=== PATIENT | female | born 1985 | race Caucasian/White ===

== ENCOUNTER → 2016-12-01 | Outpatient (CLI) | payer OTHER | END | disposition home or self-care (01) | LOC: LABWHC1 15:54 | PROVIDERS: ATTEND Obstetrics & Gynecology | DX: Z34.90 Encounter for supervision of normal pregnancy, unspecified, unspecified trimester (principal); Z3A.00 Weeks of gestation of pregnancy not specified | CPT/HCPCS: 36415; 84702 ==

== ENCOUNTER 2020-10-26 23:33 | Emergency (ER) | payer OTHER ==
[2020-10-26 23:38] VITALS: BP 111/59; PULSE 88; RESP 18; TEMP 98.1
[2020-10-26] MEDS ORDERED: Acetaminophen-Codeine 300-30mg TAB PO STA (23:57)
[2020-10-26] MEDS ORDERED: ACET/COD 300 MG/30 MG STARTER PACK 6 TAB BTL PO STA (23:57)
--- NOTE | 2020-10-26 23:58 | ED ---
Fall HPI - General Chief Complaint: Fall Stated Complaint: Fall Time Seen by Provider: 10/26/20 23:36 Source: EMS, RN notes reviewed, old records reviewed Mode of arrival: EMS - History of Present Illness Initial Comments: This is a 35-year-old female DF for evaluation patient has severe right-sided back right hip pain. Patient had trip and fall downstairs fall on a shoe that was on the stairs. Patient states she went all the way down the stairs and she felt like she may pass out. Patient denies any other injury was no loss of consciousness did not hit her head. Patient denying any abdominal pain no chest pain or shortness of breath. MD Complaint: fall -: hour(s) Fall From: standing When Fall Occurred: 1 hour [employer] Fall Witnessed: no Place Fall Occurred: home Loss of Consciousness: none Prolonged Down Time?: no Symptoms Prior to Fall: none Location: buttocks Location - Extremities: Right: Thigh Severity: severe Severity scale (1-10): 9 Quality: burning Context: tripped/slipped Associated Symptoms: denies - Related Data Home Medications Medication Instructions Recorded Confirmed Albuterol Inhaler (Mhu) [Ventolin 1 - 2 puff INHALATION Q6HR PRN 03/16/16 07/14/16 Hfa Inhaler] Pnv,Calcium 72/Iron/Folic Acid 1 each PO DAILY 03/16/16 07/14/16 [ Plus Tablet] Previous Rx's Medication Instructions Recorded Acetaminophen-Codeine 300-30mg 1 - 2 tab PO Q4H PRN #30 tablet 07/20/16 [Tylenol #3] Ibuprofen [Motrin] 600 mg PO Q6HR PRN #40 tab 07/20/16 Allergies Allergy/AdvReac Type Severity Reaction Status Date / Time environmental Allergy Unknown Uncoded 10/26/20 23:39 Review of Systems ROS Statement: Those systems with pertinent positive or pertinent negative responses have been documented in the HPI. ROS Other: All systems not noted in ROS Statement are negative. Past Medical History Past Medical History: Asthma History of Any Multi-Drug Resistant Organisms: None Reported Past Surgical History: Section Additional Past Surgical History / Comment(s): breast implants, sinus surgery X2, Section X3. Past Anesthesia/Blood Transfusion Reactions: Postoperative Nausea & Vomiting (PONV) Past Psychological History: No Psychological Hx Reported Smoking Status: Never smoker Past Alcohol Use History: Occasional Past Drug Use History: None Reported - Past Family History Mother Family Medical History: Unable to Obtain Additional Family Medical History / Comment(s): Pt was adopted, unknown family history. General Exam Limitations: no limitations General appearance: alert, in no apparent distress Head exam: Present: atraumatic, normocephalic, normal inspection Eye exam: Present: normal appearance, PERRL, EOMI. Absent: scleral icterus, conjunctival injection, periorbital swelling ENT exam: Present: normal exam, mucous membranes moist Neck exam: Present: normal inspection. Absent: tenderness, meningismus, lymphadenopathy Respiratory exam: Present: normal lung sounds bilaterally. Absent: respiratory distress, wheezes, rales, rhonchi, stridor Cardiovascular Exam: Present: regular rate, normal rhythm, normal heart sounds. Absent: systolic murmur, diastolic murmur, rubs, gallop, clicks GI/Abdominal exam: Present: soft, normal bowel sounds. Absent: distended, tenderness, guarding, rebound, rigid Extremities exam: Present: normal inspection, full ROM, normal capillary refill. Absent: tenderness, pedal edema, joint swelling, calf tenderness Back exam: Present: normal inspection Neurological exam: Present: alert, oriented X3, CN II-XII intact Psychiatric exam: Present: normal affect, normal mood Skin exam: Present: warm, dry, intact, normal color. Absent: rash Course Vital Signs 10/26/20 23:35 Temperature 98.1 F Pulse Rate 88 Respiratory 18 Rate Blood Pressure 111/59 O2 Sat by Pulse 100 Oximetry - Reevaluation(s) Reevaluation #1: 10/27/20 02:35 Medical record is reviewed Reevaluation #2: 10/27/20 02:36 Patient is pain is improved here in the ER and is able to ambulate without severe difficulty or distress Medical Decision Making - Medical Decision Making 35 female to the ER status post a trip and fall. Patient fell with significant back contusion. X-rays otherwise negative urine is negative for blood patient not and can be discharged home - Lab Data Lab Results 10/27/20 10/27/20 Range/Units 00:43 00:43 Urine Color Yellow Urine Appearance Clear (Clear) Urine pH 7.5 (5.0-8.0) Ur Specific [place] 1.026 (1.001-1.035) Urine Protein Trace H (Negative) Urine Glucose (UA) Negative (Negative) Urine Ketones Negative (Negative) Urine Blood Negative (Negative) Urine Nitrite Negative (Negative) Urine Bilirubin Negative (Negative) Urine Urobilinogen <2.0 (<2.0) mg/dL Ur Leukocyte Esterase Negative (Negative) Urine HCG, Qual Not Detected (Not Detectd) - Radiology Data Radiology results: report reviewed (X-ray hip pelvis and lumbosacral spine are negative for traumatic injury), image reviewed Disposition Clinical Impression: Fall, Back contusion Disposition: HOME SELF-CARE Condition: Good Instructions (If sedation given, give patient instructions): Contusion in Adults (ED) Is patient prescribed a controlled substance at d/c from ED?: No Referrals: None,Stated [Primary Care Provider] - 1-2 days
[2020-10-27 01:40] LABS: Appearance,Urine Clear (Clear); Bilirubin,Urine Negative (Negative); Blood,Urine Negative (Negative); Color,Urine Yellow; Glucose,Urine (UA) Negative (Negative); Ketones,Urine Negative (Negative); Leukocyte Esterase,Urine Negative (Negative); Nitrite,Urine Negative (Negative); PH, Urine 7.5 (5.0-8.0); Protein,Urine Trace (Negative); Specific Gravity,Urine 1.026 (1.001-1.035); Urobilinogen,Urine <2.0 mg/dL (<2.0)
--- NOTE | 2020-10-27 02:50 | XR ---
EXAM: XR Lumbosacral Spine, 2 or 3 Views CLINICAL HISTORY: ITS.REASON XR Reason: fall TECHNIQUE: Frontal and lateral views of the lumbar spine and sacrum. COMPARISON: No relevant prior studies available. FINDINGS: Vertebrae: Unremarkable. No acute fracture. Normal alignment. Sacrum/coccyx: Unremarkable as visualized. No acute fracture. Disc spaces: No acute findings. No significant narrowing. Soft tissues: Unremarkable. IMPRESSION: No evidence of acute fracture or malalignment.
--- NOTE | 2020-10-27 02:52 | XR ---
EXAM: XR Right Hip With Pelvis When Performed, 2 or 3 Views CLINICAL HISTORY: ITS.REASON XR Reason: fall TECHNIQUE: Two or three views of the right hip with pelvis when performed. COMPARISON: No relevant prior studies available. FINDINGS: Bones/joints: Unremarkable. No acute fracture. No dislocation. Soft tissues: Unremarkable. IMPRESSION: No evidence of acute fracture or dislocation.
== END 2020-10-27 03:03 | disposition home or self-care (01) ==
LOC: EC 23:33
DX: S30.0XXA Contusion of lower back and pelvis, initial encounter (principal); J45.909 Unspecified asthma, uncomplicated; W10.9XXA Fall (on) (from) unspecified stairs and steps, initial encounter
CPT/HCPCS: 72100; 73502; 81003; 81025; 99284

== ENCOUNTER → 2020-11-15 | Outpatient (CLI) | payer OTHER | END | disposition home or self-care (01) | LOC: LABWHC1 17:15 | PROVIDERS: ATTEND Family Medicine | DX: Z20.822 Contact with and (suspected) exposure to COVID-19 (principal) | CPT/HCPCS: U0003; C9803 ==

== ENCOUNTER 2022-06-26 08:39 | Day surgery (SDC) | payer OTHER ==
[2022-06-23 15:47] VITALS: BMI 26.7
[~2022-06-26 08:39] MED LIST: LACTATED RINGERS 1,000 ML IV SCH; LIDOCAINE 1% (10MG/ML) FOR IV START INTRADERMA PRN
[2022-06-26 09:14] VITALS: TEMP 97.3
[2022-06-26] MEDS ORDERED: PROPOFOL 10 MG/ML 20 ML VIAL IV ONE (10:08)
--- NOTE | 2022-06-26 10:39 | P.PCN ---
Date of Procedure: 06/26/22 Procedure(s) Performed: BRIEF HISTORY: Patient is a 36-year-old pleasant female scheduled for an elective colonoscopy as a part of evaluation of change in bowel habits and intermittent rectal bleeding for the last several years duration. PROCEDURE PERFORMED: Colonoscopy. PREOPERATIVE DIAGNOSIS: Change in bowel habits and intermittent rectal bleeding. IV sedation per Anesthesia. PROCEDURE: After informed consent was obtained, the patient, was brought into the endoscopy unit. IV sedation was administered by Anesthesia under continuous monitoring. Digital rectal examination was normal. Initially the Olympus CF-160 flexible video colonoscope was then inserted in the rectum, gradually advanced into the cecum without any difficulty. Careful examination was performed as the scope was gradually being withdrawn. Ileocecal valve and the appendiceal orifice were visualized and appeared normal. Prep was excellent. Mucosa of the cecum, ascending colon, transverse colon, descending colon, sigmoid colon, and rectum appeared normal. Retroflexion was performed in the rectum and no lesions were seen. The patient tolerated the procedure well. IMPRESSION: Normal-appearing colon from rectum to cecum with no evidence of colorectal neoplasia. RECOMMENDATIONS: Findings of this examination were discussed with the patient as well as her family. She was advised to be a high-fiber diet and take fiber supplements a regular basis. Avoid straining and constipation. Recommend repeat colonoscopy at age 47.
[2022-06-26 10:53] VITALS: RESP 16
[2022-06-26] MEDS ORDERED: ARTIFICIAL TEARS-HYPROMELLOSE DROPS 15 ML BTL BOTH EYES STA (11:02)
[2022-06-26 11:20] VITALS: BP 106/65; PULSE 69
== END 2022-06-26 11:36 | disposition home or self-care (01) ==
LOC: ORWHC2ENDO 08:39
PROVIDERS: ATTEND Internal Medicine Gastroenterology
DX: K62.5 Hemorrhage of anus and rectum (principal); J45.909 Unspecified asthma, uncomplicated
CPT/HCPCS: 81025; 45378; J2704

== ENCOUNTER → 2022-12-08 | Outpatient (CLI) | payer OTHER ==
--- NOTE | 2022-12-08 15:53 | US ---
EXAMINATION TYPE: US pelvic complete DATE OF EXAM: 12/08/2022 COMPARISON: NONE CLINICAL INDICATION: Female, 37 years old with history of R10.2 PELVIC AND PERINEAL PAIN; Pt states b ack and pelvic pain TECHNIQUE: Transabdominal (TA). Transabdominal sonographic images of the pelvis were acquired. Date of LMP: 11/21/2022 EXAM MEASUREMENTS: Uterus: 10.6 x 3.6 x 4.6 cm Endometrial Stripe: 1.3 cm Right Ovary: 3.0 x 2.2 x 2.4 cm Left Ovary: 2.5 x 2.0 x 1.9 cm 1. Uterus: Anteverted wnl 2. Endometrium: wnl 3. Right Ovary: wnl 4. Left Ovary: wnl 5. Bilateral Adnexa: wnl 6. Posterior cul-de-sac: wnl IMPRESSION: Unremarkable study.
== END | disposition home or self-care (01) ==
LOC: RADUSWWP 14:57
PROVIDERS: ATTEND Obstetrics & Gynecology
DX: R10.2 Pelvic and perineal pain (principal)
CPT/HCPCS: 76856

== ENCOUNTER → 2023-06-01 | Outpatient (CLI) | payer OTHER ==
--- NOTE | 2023-06-02 09:48 | MM ---
Reason for Exam: Screening (asymptomatic). Baseline mammogram. Patient History: Menarche at age 14. First Full-Term at age 21. Premenopausal. 06/01/2018, Bilateral Implants. 06/01/2013, Bilateral Implants. Last menstrual period: 05/30/2023 Risk Values: Paula 5 year model risk: 0.2%. NCI Lifetime model risk: 7.5%. Prior Study Comparison: Patient's first Mammogram. Tissue Density: The breast tissue is heterogeneously dense. This may lower the sensitivity of mammography. Findings: Analyzed By CAD. There is no suspicious group of microcalcifications or new suspicious mass in either breast. Bilateral implants are intact. Overall Assessment: Benign, BI-RAD 2 Management: Screening Mammogram of both breasts in 1 year. . Patient should continue monthly self-breast exams. A clinical breast exam by your physician is recommended on an annual basis. This exam should not preclude additional follow-up of suspicious palpable abnormalities. Note on Paula scores and lifetime risk: 1. A Paula score greater than 3% is considered moderate risk. If this is the case, consider specialist referral to assess eligibility for a risk reducing agent. 2. If overall lifetime risk for the development of breast cancer is 20% or higher, the patient may qualify for future screening with alternating mammogram and breast MRI. Electronically signed and approved by: Doron Escobedo M.D. Radiologis
== END | disposition home or self-care (01) ==
LOC: RADMAMWWP 10:11
PROVIDERS: ATTEND Obstetrics & Gynecology
DX: Z12.31 Encounter for screening mammogram for malignant neoplasm of breast (principal)
CPT/HCPCS: 77063; 77067

== ENCOUNTER → 2024-10-20 | Day surgery (SDC) | payer OTHER ==
--- NOTE | 2024-10-20 11:31 | USB ---
Risk Values: Paula 5 year model risk: 0.3%. NCI Lifetime model risk: 7.4%. Findings: Technique utilized:US discontinued breast bx RT Image; Ultrasound imaging of: Area of concern. Limited imaging of the rest the area of concern demonstrates similar probable fat-containing lesion at 1:00 7 cm from nipple with more hyperechoic centrally and anechoic/hypoechoic cyst periphery. Given the no evidence of stability and history of post surgical change) could represent postsurgical change Short-term follow-up in 6 months recommended. Procedure was canceled patient agreeable to plan of action. Management: Diagnostic Breast Ultrasound of the right breast in 6 months. Short-term follow-up recommended given no stability or evidence of growth with a lesion that appears to be fat on both mammography and ultrasound. A clinical breast exam by your physician is recommended on an annual basis and results should be correlated with mammographic findings. This exam should not preclude additional follow-up of suspicious palpable abnormalities. Results were given to the patient verbally at the time of exam. [facility], , 10/20/2024 11:18 AM. Electronically signed and approved by: Yusef Barrera DO
== END ==
LOC: RADUSWWP 10:18
PROVIDERS: ATTEND Surgery
DX: Z53.8 Procedure and treatment not carried out for other reasons (principal); R92.8 Other abnormal and inconclusive findings on diagnostic imaging of breast